=== PATIENT | female | born 2000 | race Hispanic/Latino ===

== ENCOUNTER 2022-10-06 18:40 | Emergency (ER) | payer SELFPAY ==
[2022-10-06] MEDS ORDERED: Ibuprofen 800 MG TAB ONE (19:44)
[2022-10-06] MEDS ORDERED: Acetaminophen 500 MG TAB ONE (19:44)
== END 2022-10-06 20:04 | disposition home or self-care (01) ==
LOC: ERS 18:40
DX: S80.01XA Contusion of right knee, initial encounter (principal); W10.9XXA Fall (on) (from) unspecified stairs and steps, initial encounter

== ENCOUNTER 2024-10-09 10:18 | Emergency (ER) | payer SELFPAY | END 2024-10-09 10:49 | disposition home or self-care (01) | LOC: ERS 10:18 | DX: J02.0 Streptococcal pharyngitis (principal); F17.290 Nicotine dependence, other tobacco product, uncomplicated | CPT/HCPCS: 99282 ==